=== PATIENT | female | born 1945 | race Caucasian/White ===

== ENCOUNTER → 2016-05-11 | Outpatient (CLI) | payer MEDICARE ==
--- NOTE | 2016-05-14 12:09 | MM ---
Reason for exam: screening (asymptomatic). Last mammogram was performed 1 year ago. History: Patient is postmenopausal. Family history of breast cancer in mother at age 72. Took estrogen for 13 years. Physical Findings: A clinical breast exam by your physician is recommended on an annual basis and results should be correlated with mammographic findings. MG 3D Screening Mammo W/Cad Bilateral CC and MLO view(s) were taken. Prior study comparison: May 11, 2015, bilateral MG screening mammo w CAD. April 27, 2014, bilateral MG screening mammo w CAD. There are scattered fibroglandular densities. No significant changes when compared with prior studies. ASSESSMENT: Negative, BI-RAD 1 RECOMMENDATION: Routine screening mammogram of both breasts in 1 year.
== END | disposition home or self-care (01) ==
LOC: RADMAMWWP 15:01
PROVIDERS: ATTEND Family Medicine
DX: Z12.31 Encounter for screening mammogram for malignant neoplasm of breast (principal)
CPT/HCPCS: 77063; G0202

== ENCOUNTER → 2016-12-07 | Outpatient (CLI) | payer MEDICARE ==
--- NOTE | 2016-12-07 14:37 | MR ---
EXAMINATION TYPE: MR lumbar spine wo con DATE OF EXAM: 12/07/2016 COMPARISON: NONE HISTORY: sciatica of lt side per order. Severe sciatica pain for 20 years with pain into left lower e xtremity per patient TECHNIQUE: Multiplanar, multisequence imaging of the lumbar spine is performed without IV contrast. FINDINGS: Sagittal images of the lumbar spine show vertebral body heights heights to appear satisfact ory. There is slight levoconvex scoliotic curvature centered at L2 level. There is multilevel spondyl olisthesis or grade 1 retrolisthesis of L1 on L2, L2 on L3, and L3 on L4. Multilevel disc desiccation is seen. There is moderate to advanced disc space narrowing L1-L2 and L2-L3 levels. Posterior disc h erniation is present at L2-L3 and L5-S1 levels on sagittal images. The conus medullaris is somewhat h igh in position at mid T12 level. No suspicious signal or clumping of lumbosacral nerve roots is seen . There is overall focal moderate to severe spurring with heterogeneous endplate changes in the upper to mid lumbar spine most prominent at L1-L2 level. There is susceptibility artifact posterior inferi or L2 level on sagittal image 7 of uncertain etiology. Axial images show the T12-L1 level to appear within normal limits. Axial images at L1-L2 level show mild to moderate broad-based posterior disc protrusion mildly effaci ng anterior thecal sac on axial image 23. Bilateral neural foramina are patent. Axial images at L2-L3 level show moderate broad disc bulge with right foraminal disc protrusion compo nent on axial image 18. There is mild effacement anterior thecal sac. Left-sided neural foramen is pa tent. Right-sided neural foramina shows moderate inferior neural foraminal narrowing. Mild facet arth ropathy bilaterally at this level is seen. Axial images at the L3-L4 level show mild to moderate facet arthropathy and ligamentum flavum hypertr ophy bilaterally mildly effacing posterior lateral thecal sac. There is spondylolisthesis and broad d isc bulge minimally effacing anterior thecal sac. Bilateral neural foramina are grossly patent. Axial images at L4-L5 level show moderate to advanced facet degenerative changes and ligament flavum hypertrophy. There is effacement of the posterior lateral thecal sac bilaterally. There is broad disc bulge minimally effacing anterior thecal sac. There is mild bilateral neural foraminal narrowing at this level identified. Axial images at L5-S1 level show mild/moderate facet degenerative changes bilaterally. There is broad disc bulge with focal central disc protrusion seen. Left-sided neural foramina are significantly cuco rowed with loss of surrounding epidural fat seen best on sagittal image 2. Suspect foraminal disc pro trusion accounting for this appearance if there has been no history of prior surgery. There is modera te right-sided neural foraminal narrowing at this level identified. Paraspinal muscles show mild generalized atrophy bilaterally. IMPRESSION: Scoliotic curvature with multilevel spondylolisthesis and degenerative changes as detaile d above. Attention to lumbosacral junction where foraminal disc herniation is felt to be causing adva nced left-sided neural foraminal narrowing and likely effacement of left L5 nerve.
== END | disposition home or self-care (01) ==
LOC: RADMRIMAIN 13:35
PROVIDERS: ATTEND Family Medicine
DX: M99.73 Connective tissue and disc stenosis of intervertebral foramina of lumbar region (principal); M46.06 Spinal enthesopathy, lumbar region; M47.26 Other spondylosis with radiculopathy, lumbar region
CPT/HCPCS: 72148

== ENCOUNTER → 2017-08-23 | Outpatient (CLI) | payer MEDICARE ==
--- NOTE | 2017-08-27 08:02 | MM ---
Reason for exam: screening (asymptomatic). Last mammogram was performed 1 year and 3 months ago. History: Patient is postmenopausal. Family history of breast cancer in mother at age 72. Took estrogen for 13 years. Physical Findings: A clinical breast exam by your physician is recommended on an annual basis and results should be correlated with mammographic findings. MG 3D Screening Mammo W/Cad Bilateral CC and MLO view(s) were taken. Prior study comparison: May 11, 2016, bilateral MG 3d screening mammo w/cad. May 11, 2015, bilateral MG screening mammo w CAD. There are scattered fibroglandular densities. Asymmetric density lateral left breast middle depth is new from 2016 and more defined from 2017. Partially disperses on 3D images. ASSESSMENT: Incomplete: need additional imaging evaluation, BI-RAD 0 RECOMMENDATION: Special view mammogram of the left breast. If lesion persists on supplemental views, image directed ultrasound is recommended. [facility] will attempt to contact patient to return for supplemental views and ultrasound if indicated.
== END | disposition home or self-care (01) ==
LOC: RADMAMWWP 12:27
PROVIDERS: ATTEND Family Medicine
DX: Z12.31 Encounter for screening mammogram for malignant neoplasm of breast (principal)
CPT/HCPCS: 77063; 77067

== ENCOUNTER → 2017-09-10 | Outpatient (CLI) | payer MEDICARE ==
--- NOTE | 2017-09-10 14:39 | MM ---
Reason for exam: additional evaluation requested from abnormal screening. Last mammogram was performed 1 month ago. History: Patient is postmenopausal. Family history of breast cancer in sister at age 72 and breast cancer in mother at age 72. Took estrogen for 13 years. Physical Findings: Nurse did not find any significant physical abnormalities on exam. MG 3D Work Up W/Cad LT Spot compression CC, spot compression MLO, and ML view(s) were taken of the left breast. Prior study comparison: August 23, 2017, bilateral MG 3d screening mammo w/cad. May 11, 2016, bilateral MG 3d screening mammo w/cad. The breast tissue is heterogeneously dense. This may lower the sensitivity of mammography. No distinct lesion persists on additional views left upper outer quadrant. These results were verbally communicated with the patient and result sheet given to the patient on 09/10/17. ASSESSMENT: Benign, BI-RAD 2 RECOMMENDATION: Return to routine screening mammogram schedule for both breasts.
== END | disposition home or self-care (01) ==
LOC: RADMAMWWP 13:26
PROVIDERS: ATTEND Family Medicine
DX: R92.8 Other abnormal and inconclusive findings on diagnostic imaging of breast (principal)
CPT/HCPCS: 77065; G0279; 77061

== ENCOUNTER → 2018-09-10 | Outpatient (CLI) | payer MEDICARE ==
--- NOTE | 2018-09-12 13:41 | MM ---
Reason for exam: screening (asymptomatic). Last mammogram was performed 1 year ago. History: Patient is postmenopausal. Family history of breast cancer in sister at age 72 and breast cancer in mother at age 72. Took estrogen for 13 years. Physical Findings: A clinical breast exam by your physician is recommended on an annual basis and results should be correlated with mammographic findings. MG 3D Screening Mammo W/Cad Bilateral CC and MLO view(s) were taken. Prior study comparison: September 10, 2017, left breast MG 3d work up w/cad LT. August 23, 2017, bilateral MG 3d screening mammo w/cad. No significant changes when compared with prior studies. ASSESSMENT: Benign, BI-RAD 2 RECOMMENDATION: Routine screening mammogram of both breasts in 1 year.
== END | disposition home or self-care (01) ==
LOC: RADMAMWWP 13:22
PROVIDERS: ATTEND Family Medicine
DX: Z12.31 Encounter for screening mammogram for malignant neoplasm of breast (principal)
CPT/HCPCS: 77063; 77067

== ENCOUNTER → 2020-01-12 | Outpatient (CLI) | payer MEDICARE ==
[2020-01-12 15:21] LABS: HCT 39.3 % (34.0-46.0); HGB 12.9 gm/dL (11.4-16.0); MCH 30.9 pg (25.0-35.0); MCHC 32.9 g/dL (31.0-37.0); MCV 93.7 fL (80.0-100.0); Mean Platelet Volume 7.2; Platelet Count 234 k/uL (150-450); RBC 4.19 m/uL (3.80-5.40); RDW 12.6 % (11.5-15.5); WBC 7.5 k/uL (3.8-10.6)
[2020-01-12 15:32] LABS: Albumin 3.8 g/dL (3.5-5.0); Calcium 9.5 mg/dL (8.4-10.2); Potassium 4.6 mmol/L (3.5-5.1); Total Bilirubin 0.4 mg/dL (0.2-1.3); Total Protein 6.3 g/dL (6.3-8.2)
[2020-01-12 15:41] LABS: Appearance,Urine Clear (Clear); Bacteria,Urine Moderate /hpf; Bilirubin,Urine 3+ (Negative); Blood,Urine Negative (Negative); Color,Urine Yellow; Glucose,Urine (UA) Negative (Negative); Hyaline Casts,Urine 1 /lpf (0-2); Ketones,Urine Negative (Negative); Leukocyte Esterase,Urine Trace (Negative); Mucus,Urine Rare /hpf; Nitrite,Urine Positive (Negative); PH, Urine 7.5 (5.0-8.0); Protein,Urine Negative (Negative); RBC,Urine <1 /hpf (0-5); Specific Gravity,Urine 1.018 (1.001-1.035); Squamous Epithelial Cell,Urine <1 /hpf (0-4); Urobilinogen,Urine <2.0 mg/dL (<2.0); WBC,Urine 1 /hpf (0-5)
[2020-01-12 15:42] LABS: INR 0.9 (<1.2); Partial Thromboplastin Time 22.9 sec (22.0-30.0); Prothrombin Time 9.8 sec (9.0-12.0)
== END | disposition home or self-care (01) ==
LOC: LABPAT 14:04
PROVIDERS: ATTEND Orthopaedic Surgery
DX: Z01.818 Encounter for other preprocedural examination (principal); M19.011 Primary osteoarthritis, right shoulder; Z01.812 Encounter for preprocedural laboratory examination
CPT/HCPCS: 80053; 81001; 85027; 85610; 85730; 87070

== ENCOUNTER 2020-01-22 10:10 | Inpatient (IN) | payer MEDICARE ==
[2020-01-13 10:12] VITALS: BMI 29.4
[~2020-01-22 10:10] MED LIST: DEXAMETHASONE SOD PHOSPHATE 4 MG/ML 1 ML VIAL IV ONE; HYDROmorphone 0.5 MG/0.5 ML SYRINGE IVP PRN; MIDAZOLAM 2 MG/2 ML VIAL IV PRN; ONDANSETRON 4 MG/2 ML VIAL IVP ONE; VANCOMYCIN 1,250 MG in SODIUM CHLORIDE 0.9% 250 ML IVPB ONE
[2020-01-22] MEDS: LACTATED RINGERS 1,000 ML IV SCH (11:00)
[2020-01-22] MEDS ORDERED: fentaNYL (PF) 50 MCG/ML 2 ML AMP IV ONE ×2 (12:07→12:09)
[2020-01-22] MEDS ORDERED: THROMBIN (BOVINE) 5,000 UNIT VIAL TOPICAL ONE (12:26)
--- NOTE | 2020-01-22 12:41 | P.ANPRN ---
Procedure Note - Anesthesia - Nerve Block Performed Right Interscalene Time Out Performed: Yes (12:06) Date of Procedure: 01/22/20 Procedure Start Time: Procedure Stop Time: Location of Patient: PreOp Indication: Acute Post-Operative Pain, Requested by Surgeon (Dr Smith) Sedation Type: Sedate with meaningful contact maintained Preparation: Sterile Prep Position: Supine Catheter: None Needle Types: Pajunk (22g) Ultrasound used to visualize needle placement: Yes Ultrasound used to observe medication spread: Yes Injectate: 0.5% Ropivacaine (see comment for volume) (20cc + Decadron 4mg) Pain Paresthesia on Injection Noted: No Resistance on Injection: Normal Image Stored and Saved: Yes Events: Uneventful and Well Tolerated
[2020-01-22] MEDS ORDERED: CLINDAMYCIN 1,800 MG in SODIUM CHLORIDE 0.9% IRRIGATIO 3,000 ML IRRIGATION ONE (13:05)
[2020-01-22] MEDS ORDERED: LACTATED RINGERS 1,000 ML IV ONE (14:00)
[2020-01-22] MEDS ORDERED: diphenhydrAMINE 25 MG CAP PO PRN (15:04)
[2020-01-22] MEDS ORDERED: TEMAZEPAM 15 MG CAP PO PRN (15:04)
[2020-01-22] MEDS ORDERED: ONDANSETRON 4 MG/2 ML VIAL IVP PRN (15:04)
[2020-01-22] MEDS ORDERED: HYDROmorphone 0.2 MG/1 ML SYRINGE IVP PRN (15:04)
[2020-01-22] MEDS ORDERED: HYDROmorphone 0.5 MG/0.5 ML SYRINGE IVP PRN ×2 (15:04)
[2020-01-22] MEDS ORDERED: SENNOSIDES-DOCUSATE SODIUM 1 EACH TAB PO PRN (15:04)
[2020-01-22] MEDS ORDERED: HYDROcodone/APAP 5-325MG 1 EACH TAB PO PRN (15:04)
--- NOTE | 2020-01-22 15:41 | XR ---
EXAMINATION TYPE: XR shoulder limited RT DATE OF EXAM: 01/22/2020 CLINICAL HISTORY: pain TECHNIQUE: Postop right shoulder COMPARISON: None FINDINGS: Single view of the right shoulder was performed demonstrating proximal humeral prosthesis. Alignment is anatomic. IMPRESSION: Appropriate postoperative alignment.
[2020-01-22] MEDS: ETODOLAC 400 MG TAB PO SCH (21:16)
[2020-01-22] MEDS: HYDROcodone/APAP 5-325MG 1 EACH TAB PO PRN (21:16)
[2020-01-23] MEDS ORDERED: VANCOMYCIN 1,250 MG in SODIUM CHLORIDE 0.9% 250 ML IVPB ONE (08:00)
[2020-01-23] MEDS: HYDROcodone/APAP 5-325MG 1 EACH TAB PO PRN ×2 (08:37→13:59)
[2020-01-23 08:39] VITALS: BP 102/65; PULSE 78; RESP 20; TEMP 98.6
[2020-01-23] MEDS: ETODOLAC 400 MG TAB PO SCH (08:40)
--- NOTE | 2020-01-23 08:59 | P.DS ---
Providers Date of admission: 01/22/20 14:59 Expected date of discharge: 01/23/20 Attending physician: Gibran Smith Consults: 01/22/20 15:04 Consult Physician Routine Consulting Provider: Juan Walsh Consult Reason/Comments: Medical management Do you want consulting provider notified?: Yes Primary care physician: Juan Walsh - Discharge Diagnosis(es) (1) Primary osteoarthritis, right shoulder Current Visit: Yes Status: Acute (2) Status post replacement of right shoulder joint Current Visit: Yes Status: Acute Hospital Course: This is a 74-year-old female who has history of severe degenerative arthritis of the right shoulder and presented to discuss surgical options. After discussion and consideration the patient elects to proceed with total shoulder arthroplasty. The pt is seen preoperatively by their family physician and cleared for surgery. The patient is admitted to [facility] on 01/22/2020 for total right shoulder arthroplasty with Dr. Smith. She is doing well postoperatively. Vital signs and hemoglobin are stable. The patient is able to get up out of bed independently and is ambulating without assistance. Pain is well controlled. Patient is discharged to home on postoperative day #1 in good condition. Please see med rec for accurate list of home medications. Patient Condition at Discharge: Stable Plan - Discharge Summary Discharge Rx Participant: No New Discharge Prescriptions: New Aspirin [Adult Low Dose Aspirin EC] 81 mg PO BID #60 tablet. HYDROcodone/APAP 5-325MG [[place] 5-325] 1 - 2 tab PO Q6HR PRN #42 tab PRN Reason: Pain Sennosides-Docusate Sodium [Senokot-S] 1 tab PO BID #60 tablet No Action Simvastatin [Zocor] 10 mg PO W/SUPPER Oxybutynin ER [Ditropan Xl] 10 mg PO QAM Fexofenadine HCl [Reyna Allergy] 180 mg PO DAILY traMADol HCL [Ultram] 50 mg PO TID hydroCHLOROthiazide [Hydrodiuril] 25 mg PO DAILY Sertraline [Zoloft] 100 mg PO DAILY Atenolol [Tenormin] 50 mg PO DAILY Etodolac Tab 400 mg PO BID-W/MEALS Discharge Medication List Atenolol [Tenormin] 50 mg PO DAILY 01/13/20 [History] Etodolac Tab 400 mg PO BID-W/MEALS 01/13/20 [History] Fexofenadine HCl [Reyna Allergy] 180 mg PO DAILY 01/13/20 [History] Oxybutynin ER [Ditropan Xl] 10 mg PO QAM 01/13/20 [History] Sertraline [Zoloft] 100 mg PO DAILY 01/13/20 [History] Simvastatin [Zocor] 10 mg PO W/SUPPER 01/13/20 [History] hydroCHLOROthiazide [Hydrodiuril] 25 mg PO DAILY 01/13/20 [History] traMADol HCL [Ultram] 50 mg PO TID 01/13/20 [History] Aspirin [Adult Low Dose Aspirin EC] 81 mg PO BID #60 tablet. 01/22/20 [Rx] HYDROcodone/APAP 5-325MG [[place] 5-325] 1 - 2 tab PO Q6HR PRN #42 tab 01/22/20 [Rx] Sennosides-Docusate Sodium [Senokot-S] 1 tab PO BID #60 tablet 01/22/20 [Rx] Follow up Appointment(s)/Referral(s): Fely Martinez, PAC [PHYSICIAN MOLECULAR BIOLOGY PROFESSOR] - 2 Weeks Activity/Diet/Wound Care/Special Instructions: Keep sling in place, may remove for pendulum exercises and table slides (passive motion). Keep Optifoam dressing intact 7-10 days. Discharge Disposition: HOME SELF-CARE
[2020-01-23] MEDS ORDERED: atenoloL 50 MG TAB PO SCH (09:00)
[2020-01-23] MEDS ORDERED: hydroCHLOROthiazide 25 MG TAB PO SCH (09:00)
[2020-01-23] MEDS ORDERED: LORATADINE 10 MG TAB PO SCH (09:00)
[2020-01-23] MEDS ORDERED: SERTRALINE 100 MG TAB PO SCH (09:00)
[2020-01-23] MEDS ORDERED: OXYBUTYNIN 10 MG TAB.ER.24 PO SCH (09:00)
[2020-01-23] MEDS: LACTATED RINGERS 1,000 ML IV SCH (10:25)
--- NOTE | 2020-01-23 16:15 | P.CONS ---
History of Present Illness - Reason for Consult Hypertension - History of Present Illness Is a pleasant 74-year-old female was admitted for right shoulder arthroplasty. Patient is hypotensive postoperatively which is expected patient is on hydrochlorothiazide and a beta greta at home. Review of Systems REVIEW OF SYSTEMS: CONSTITUTIONAL: No fever, no malaise, no fatigue. HEENT: No recent visual problems or hearing problems. Denied any sore throat. CARDIOVASCULAR: No chest pain, orthopnea, PND, no palpitations, no syncope. PULMONARY: No shortness of breath, no cough, no hemoptysis. GASTROINTESTINAL: No diarrhea, no nausea, no vomiting, no abdominal pain. NEUROLOGICAL: No headaches, no weakness, no numbness. HEMATOLOGICAL: Denies any bleeding or petechiae. GENITOURINARY: Denies any burning micturition, frequency, or urgency. MUSCULOSKELETAL/RHEUMATOLOGICAL: Denies any joint pain, swelling, or any muscle pain. ENDOCRINE: Denies any polyuria or polydipsia. The rest of the 14-point review of systems is negative. Past Medical History Past Medical History: Hyperlipidemia, Hypertension, Osteoarthritis (OA), Skin Disorder, Sleep Apnea/CPAP/BIPAP Additional Past Medical History / Comment(s): hx eczema, seasonal and environmental allergies, "leaky bladder", balance problem due to left ear problem History of Any Multi-Drug Resistant Organisms: None Reported Past Surgical History: Adenoidectomy, Appendectomy, Hysterectomy, Tonsillectomy Additional Past Surgical History / Comment(s): oral surgery, carpal tunnel cleve, mult steroid injections, cleve cataracts Past Anesthesia/Blood Transfusion Reactions: No Reported Reaction Additional Psychological History / Comment(s): OCD Smoking Status: Former smoker Past Alcohol Use History: Daily Additional Past Alcohol Use History / Comment(s): quit smoking 5 yrs ago, started smoking age 20, 1 alcoholic drink daily Past Drug Use History: Marijuana Additional Drug Use History / Comment(s): daily - Past Family History Mother Family Medical History: Cancer Additional Family Medical History / Comment(s): breast Sister(s) Family Medical History: Cancer Additional Family Medical History / Comment(s): mult myeloma Medications and Allergies Home Medications Medication Instructions Recorded Confirmed Type Atenolol [Tenormin] 50 mg PO DAILY 01/13/20 01/13/20 History Etodolac Tab 400 mg PO BID-W/MEALS 01/13/20 01/22/20 History Fexofenadine HCl [Reyna Allergy] 180 mg PO DAILY 01/13/20 01/13/20 History Oxybutynin ER [Ditropan Xl] 10 mg PO QAM 01/13/20 01/13/20 History Sertraline [Zoloft] 100 mg PO DAILY 01/13/20 01/13/20 History Simvastatin [Zocor] 10 mg PO W/SUPPER 01/13/20 01/13/20 History traMADol HCL [Ultram] 50 mg PO TID 01/13/20 01/13/20 History Aspirin [Adult Low Dose Aspirin EC] 81 mg PO BID #60 tablet. 01/22/20 Rx HYDROcodone/APAP 5-325MG [[place] 1 - 2 tab PO Q6HR PRN #42 tab 01/22/20 Rx 5-325] Sennosides-Docusate Sodium 1 tab PO BID #60 tablet 01/22/20 Rx [Senokot-S] Allergies Allergy/AdvReac Type Severity Reaction Status Date / Time cephalexin Allergy Rash/Hives Verified 01/22/20 10:56 ofloxacin [From Floxin] Allergy Rash/Hives Verified 01/22/20 10:56 Physical Exam Vitals: Vital Signs Temp Pulse Resp BP Pulse Ox 01/23/20 07:00 98.6 F 78 20 102/65 93 L 01/23/20 02:40 98.3 F 58 L 16 116/70 95 01/22/20 19:20 20 01/22/20 19:15 97.3 F L 82 20 112/67 96 01/22/20 18:00 76 115/75 96 01/22/20 17:45 84 122/70 95 01/22/20 17:30 76 127/65 95 01/22/20 17:15 68 118/78 95 01/22/20 17:00 69 111/76 92 L 01/22/20 16:45 65 121/76 95 01/22/20 16:30 71 130/83 94 L 01/22/20 16:15 67 117/75 95 Intake and Output 01/23/20 01/23/20 01/23/20 06:59 14:59 22:59 Intake Total 160 Balance 160 Intake: IV 160 Lactated Ringers 1,000 ml 160 @ 20 mls/hr IV .Q24H [facility] Rx#:[id number] Other: Voiding Method Toilet # Voids 1 PHYSICAL EXAMINATION: GENERAL: The patient is alert and oriented x3, not in any acute distress. Well developed, well nourished. HEENT: Pupils are round and equally reacting to light. EOMI. No scleral icterus. No conjunctival pallor. Normocephalic, atraumatic. No pharyngeal erythema. No thyromegaly. CARDIOVASCULAR: S1 and S2 present. No murmurs, rubs, or gallops. PULMONARY: Chest is clear to auscultation, no wheezing or crackles. ABDOMEN: Soft, nontender, nondistended, normoactive bowel sounds. No palpable organomegaly. MUSCULOSKELETAL: No joint swelling or deformity. She has a sling to the right arm EXTREMITIES: No cyanosis, clubbing, or pedal edema. NEUROLOGICAL: Gross neurological examination did not reveal any focal deficits. SKIN: No rashes. Assessment and Plan Plan: -Hypertension: Patient blood pressure is is 10 2 / 65 today hold off on hydrochlorothiazide his atenolol can be resumed -Hyperlipidemia -Sleep apnea continue with CPAP machine -Right shoulder arthroplasty postoperative management as per primary service Patient can be discharged from medical perspective
[2020-01-23] MEDS ORDERED: ATORVASTATIN 10 MG TAB PO SCH (17:30)
--- NOTE | 2020-02-08 14:58 | P.OP ---
Date of Procedure: 01/22/20 Procedure(s) Performed: right shoulder TSA Eclipse system from [employer] Glenoid Vault-Lock component with grafting from humeral head resected segment 200 chon Martinez small size of glenoid and humeral head Medium mulch screw Good bone metaphysis humeral head PREOPERATIVE DIAGNOSES: 1. 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 Right shoulder severe osteoarthritis of the glenohumeral joint PROCEDURES PERFORMED: 1. Right shoulder total replacement arthroplasty (metal on polyethylene articulation) 2. Long head biceps tenotomy with tenodesis ANESTHESIA: Gen. SANIPRACTIC PHYSICIAN: Fely Martinez PA-C (assistance with exposure, hemostasis, retraction, fixation, closure, dressing, splint) COMPLICATIONS: None ESTIMATED BLOOD LOSS: 200 mL. DISPOSITION: To post-anesthesia care unit INDICATIONS: Mrs. Metz is a 74 year old female with a history of severe shoulder glenohumeral osteoarthritis. The plan today is total replacement arthroplasty. I discussed risks and potential complications as being inclusive of, but not limited to: Bleeding, infection, scarring, discomfort, blood vessel and/or nerve damage, fracture, stiffness, loosening, dislocation, wear, osteolysis, weakness, and need for revision, and other risks. Appropriate consent has been obtained and the form has been signed. PROCEDURE: After appropriate consent was obtained, the patient was taken to the operating room placed in the supine position. Anesthesia was initiated, and after confirmation of adequate anesthesia, the patient was carefully positioned in the modified beachchair position with approximately 30 elevation of the back rest. Care was taken to make sure that all pressure points were adequately padded. and head was secured with Coban wrap. Prepping and draping were completed in the usual aseptic fashion using ChloraPrep. Ioban drape was used for the case. Timeout was called, confirming patient identity, side, procedure, and administration of antibiotics. Incision was created from just superior and medial to the coracoid process at the inferior margin of the clavicle obliquely across the front of the shoulder down to just lateral to the axillary fold. Incision was deepened carefully through skin and into subcutaneous tissues and down to muscle. Skin flaps were undermined to improve exposure. The cephalic vein was encountered and protected. Dissection along the medial side of the cephalic vein was accomplished and the vein was retracted along with the deltoid. The deltopectoral interval was incised and the clavipectoral fascia came into view. Self-retaining retractor was applied with care not to damage the cephalic vein. The strap muscles were noted, and dissection proceeded lateral to the red stripe and a self-retaining retractor consisting of a [place] self-retaining retractor with appropriate sized blades was used under the strap muscles and under the deltoid. Should be noted that the deltoid was carefully mobilized from the humerus with a Aleman elevator. Excellent exposure was accomplished. Sub scapularis tendon was noted and a small opening was created at the rotator interval superiorly. A Hohmann retractor was placed in this region for superior retraction. Dissection proceeded along the superior margin of the subscapularis tendon to the coracoid. The inferior aspect of the subscapularis tendon was noted and the anterior circumflex circumflex vessels were dissected out, and ligated with 0 Vicryl suture. Subscapularis tenotomy was then performed leaving approximately 5 mm of residual subscapularis stump left attached laterally to the lesser tuberosity. Tag stitches were placed in the subscapularis tendon superiorly and inferiorly. Incision was performed using electrocautery down to the anterior circumflex humeral vessels and along the inferior humeral neck. Progressive external rotation of the shoulder assisted in releasing necessary soft tissue down to approximately the 6 o'clock position on the humerus. Inferior capsule below the inferior margin of the subscapularis tendon was resected sharply using cautery and dissecting scissors. The axillary nerve was then palpated and identified and protected with a sharp Hohmann retractor placed just anterior to the nerve at the level of the inferior glenoid. Further capsular resection was then performed using cautery, staying anterior to the retractor. Further release of the subscapularis was performed on its deep surface, releasing the anterior capsule from its attachment to the subscapularis. This completed the 360 release of the subscapularis. The tendon mobility was tested by gently pulling on the tag sutures . The subscapularis tendon was then tucked medially beneath the strap muscles. Next, the humeral head was gently dislocated from the joint with progressive external rotation, adduction, and extension. Metal fingers were placed around the inferior aspect of the humeral head and superiorly. Excellent exposure was accomplished. Spurs were removed from the periphery of the humeral head and inferior humeral neck. Biceps tenotomy was then performed at this point, so that the biceps sheath entrance could be clearly visualized. Once protection of the rotator cuff peripherally had been confirmed, the humeral head cut was made freehand technique matching the patient's naknek retroversion. The cut surface of the humeral head was then tested for integrity of the bone which was found to be adequate for performance of the Eclipse humeral head reconstruction. The cut humeral head was then measured and sized. The small humeral head was planned for. The template was pinned into place and the center drill was used to assess the depth of the mulch screw necessary. The reamer was then placed over the guide and advanced to the depth stop. The humeral head protector was then left in position during the glenoid reconstruction. Leaving the humeral protector in place, a ring retractor was applied into the joint to retract the proximal humerus posteriorly. Excellent exposure of the glenoid was accomplished. Removal of capsule labral tissue around the periphery of the glenoid was performed sharply and with cautery. There was really no significant remaining cartilage on the patient's glenoid. The center point was then marked with cautery and glenoid sizing was performed. The center hole of the glenoid sizer was then positioned over the marked centerpoint and drilled with a guide pin to bicortical purchase. Care was taken when placing this pin to align the handle of the guide with the anterior glenoid neck. Reaming was then performed over the guidepin, removing little bone but making sure that the glenoid surface matched that of the glenoid component. Reaming was performed also to normalize the angle of the glenoid vault, taking into consideration the noted mild posterior glenoid erosion on preoperative x-rays. The peg hole guide was then applied to the center hole, and the superior and inferior peg holes were created. The inferior peg holes were then connected with the inferior keel impactor. Vault lock glenoid component of the planned size was then called for and the center peg hole was prepared for bone graft using the reamed remnants of the humeral head. The glenoid preparation was then completed using pulse lavage and epinephrine-soaked sponges to ensure a dry area for cement. Cement was next on the back table and applied to the superior hole and the inferior keel hole and impacted 3 separate times, applying further cement each time. The vault lock glenoid component from [employer] was then preloaded with cement in the keel hole and around the superior peg. It was then appropriately positioned over the holes and impacted fully using firm mallet taps with confirmation that all peg holes and the keel were directly in line with each other. Cement was allowed to harden after removal of the extruded cement. Trial component from the glenoid was then removed and retractors were reapplied. The glenoid component was called for and the glenoid vault was prepared with epinephrine-soaked sponges and irrigation. The inside of the keel was undermined with a curette and the debris removed in order to enhance cement fixation. After thorough lavage and drying of the glenoid vault, cement was mixed on the back table and allowed to reach a slightly doughy consistency. The cement was then inserted into the prepared glenoid vault and pressurization was done several times with the keel impactor and keel sponge. Final cementing was then applied and the glenoid surface was free of cement. Cement was also applied to the hole in the keel of the component. The component was then inserted and impacted into position. Constant pressure was held on the component until the cement had fully hardened. Excess cement was removed. The periphery of the component was checked and the component was completely flush against the glenoid. The surface protector from the humerus was then removed and the humeral surface was lavaged with saline. Final component was called for and implanted with firm mallet taps until it was fully deployed. Medium bone mulch screw was then applied and it bottomed out nicely with excellent purchase. Trial humeral heads were then utilized to make sure that the joint was not overstuffed and that the components matched up well. Patient had a satisfactory 40-50-60 test with the planned for humeral head size. Excellent stability was noted of all components. The shoulder had 50% translation with posteriorly directed force and reduced spontaneously when the force was removed. In abduction, patient had at least 65 of internal rotation and with the humerus at the patient's side, external rotation was 60 plus. Subsequently, the final humeral head implant was called for and impacted onto the [place] taper of the short humeral stem. Thorough lavage was performed and final range of motion and stability testing was satisfactory. The subscapularis tendon was then repaired as follows. 4 #2 FiberWire sutures had been applied through the bone of the lesser tuberosity prior to implanting the humeral component. These sutures were used in modified Bernardino-Heath configuration to the edge of the subscapularis tendon. The tendon was repaired superiorly first and the long head of the biceps tendon was tenodesed during this repair into the groove. 6 #2 FiberWire sutures were used to secure the subscapularis tendon, plus an additional 4 sutures of 0 Vicryl suture as and over stitch. Once this was performed external rotation was rechecked and found to be 60. Careful deltopectoral interval closure was performed with care to to avoid the cephalic vein. Final subcutaneous closure was performed using 2-0 Vicryl suture followed by Quill subcuticular stitch and Dermabond. Sterile dressing was then applied and sling was applied. Patient tolerated the procedure well and taken to recovery room in stable condition. Sponge and needle counts were correct.
== END 2020-01-23 14:26 | disposition home or self-care (01) | DRG 483 ==
LOC: OR 10:10 → 4SSUR 14:59
PROVIDERS: ADMIT Orthopaedic Surgery; ATTEND Orthopaedic Surgery
DX: M19.011 Primary osteoarthritis, right shoulder (principal); E78.5 Hyperlipidemia, unspecified; F42.9 Obsessive-compulsive disorder, unspecified; I10 Essential (primary) hypertension; I95.89 Other hypotension; Z96.611 Presence of right artificial shoulder joint; G47.30 Sleep apnea, unspecified; Z79.82 Long term (current) use of aspirin; Z79.899 Other long term (current) drug therapy; Z90.710 Acquired absence of both cervix and uterus; Z87.891 Personal history of nicotine dependence; Z80.7 Family history of other malignant neoplasms of lymphoid, hematopoietic and related tissues; Z90.49 Acquired absence of other specified parts of digestive tract; Z90.89 Acquired absence of other organs; Z98.42 Cataract extraction status, left eye; Z98.41 Cataract extraction status, right eye; Z80.3 Family history of malignant neoplasm of breast; Z88.1 Allergy status to other antibiotic agents
CPT/HCPCS: 64415; 76942; 88300

== ENCOUNTER → 2020-02-03 | Outpatient (CLI) | payer MEDICARE ==
--- NOTE | 2020-02-03 11:43 | CONS ---
CONSULTATION DATE OF SERVICE: 02/03/2020 A 74-year-old lady who has been evaluated in the [facility] for obstructive sleep apnea-hypopnea syndrome. HISTORY OF PRESENT ILLNESS/SLEEP-WAKE EVALUATION: Patient has history of obstructive sleep apnea for about 20 years. At that time, she is on treatment with CPAP. Recently after she lost about 50 pounds of weight, she developed problems with CPAP, has difficulties to tolerate pressure. She wakes up from sleep about 3 times with nocturia. She told that she still has episodes of snoring and her snoring keeps her awake according to the patient. Usually no problems with falling asleep. No TV in bedroom. She does not take any naps. Echo Sleepiness Scale is 4, which is normal. PAST MEDICAL HISTORY: Positive for hypertension, hyperlipidemia, episodes of headaches, chronic sinusitis, chronic bronchitis, chronic sciatic nerve problems, bilateral, OCD. PAST SURGICAL HISTORY: Tonsillectomy, total hysterectomy, bilateral surgery for carpal tunnel syndrome, right shoulder replaced 10 days ago. MEDICATIONS: Atenolol 50 mg once a day, hydrochlorothiazide 25 mg once a day, Sertraline 100 mg once a day, Tramadol 50 mg 3 times a day, Etodolac 50 mg 2 times a day, Oxybutynin 10 mg once a day, Simvastatin 10 mg once a day, Reyna D 180 mg once a day, aspirin 81 mg twice a day. ALLERGY: CEPHALEXIN, FLOXIN. SOCIAL HISTORY: Positive for many years of smoking, quit about 5 years ago. REVIEW OF SYSTEMS: Awakenings from sleep, difficulties to tolerate CPAP pressure. PHYSICAL EXAM: lady without distress, BP 100/71, HR 68, RR 15, height 5, 1-1/2 inches. Weight 165, BMI 30.6, temperature 97.2, oxygen saturation at room air 98%. NECK: 13.5 inches in circumference. OROPHARYNX: Extremely low position of soft palate. Mallampati 4. ABDOMEN: Slightly obese. LUNGS: Clear to percussion and to auscultation. Good air exchange. No wheezing or rhonchi. HEART: S1, S2 regular. No murmurs, gallops, or rubs. EXTREMITIES: No clubbing or cyanosis. FINANCIAL SERVICES EDUCATION CONSULTANT: Awake, alert, and oriented X3. Cranial nerves 2 to 7 intact. There is no fasciculation or atrophy. noted. No focal deficits observed. HEART: My template. IMPRESSION: 1. Obstructive sleep apnea-hypopnea syndrome for 20 years. Patient continued to use her CPAP equipment every night, but has difficulties with the machine after she lost 50 pounds of weight, extremely low position of soft palate, Mallampati 4. 2. Mild obesity, BMI 30.6. 3. Hypertension. 4. Hyperlipidemia. 5. Headaches. 6. History of chronic sinusitis. 7. History of chronic bronchitis. 8. History of balance problems. 9. History of chronic sciatic nerve problems, bilateral. 10.Status post right shoulder replacement 10 days ago. 11.Status post total hysterectomy for endometriosis. 12.Status post bilateral surgery for carpal tunnel syndrome. I checked the patient CPAP unit. Usage is 29/30 nights for more than 4 hours with average usage is 7 hours per night. CPAP pressure is 15 cm of water. Machine does not have information about apnea-hypopnea index. PLAN: 1. Repeat CPAP titration for re-evaluation of effective CPAP pressure at the present time after patient lost about 50 pounds of weight. 2. I changed CPAP pressure down to 10 cm of water. 3. Patient may need to get a new CPAP unit, present unit does not have information about apnea-hypopnea index. 4. Watching and losing weight. 5. Precautions related to driving. No driving if feeling sleepiness. 6. Patient will continue to use CPAP therapy every night for the whole night. Thank you very much for allowing me to participate in management of your patient. Sincerely, Samuel Mazariegos MD, PhD, FAASM Diplomat of [employer] [employer] Ground [employer] Technician [facility] [place] MMODL / IJN: [id number] /
== END | disposition home or self-care (01) ==
LOC: SLEEP 09:53
PROVIDERS: ATTEND Internal Medicine
DX: G47.33 Obstructive sleep apnea (adult) (pediatric) (principal); I10 Essential (primary) hypertension; E78.5 Hyperlipidemia, unspecified; R51.9 Headache, unspecified; J42 Unspecified chronic bronchitis; E66.9 Obesity, unspecified; Z87.898 Personal history of other specified conditions; Z87.09 Personal history of other diseases of the respiratory system; Z96.611 Presence of right artificial shoulder joint; Z90.710 Acquired absence of both cervix and uterus; Z86.69 Personal history of other diseases of the nervous system and sense organs; Z99.89 Dependence on other enabling machines and devices; Z68.30 Body mass index [BMI] 30.0-30.9, adult; Z79.82 Long term (current) use of aspirin; Z79.891 Long term (current) use of opiate analgesic; Z79.899 Other long term (current) drug therapy
CPT/HCPCS: 99211

== ENCOUNTER → 2020-06-23 | Outpatient (CLI) | payer MEDICARE ==
--- NOTE | 2020-06-23 19:51 | SFUN ---
SLEEP CENTER FOLLOW UP NOTE DATE OF SERVICE: 06/23/2020 This 74-year-old lady has been followed in Sleep Center for treatment of obstructive sleep apnea-hypopnea syndrome. Recently the patient had a repeat CPAP titration after she lost about 50 pounds of weight, and then she received a new CPAP unit. She likes her CPAP equipment and it works well. She sleeps well with the machine. [place] Sleepiness Scale today is 2. I checked her CPAP unit. Patient used it 27/28 nights for more than 4 hours, with average usage 6.3 hours per night. Pressure is in the range of 5 to 14, average pressure 12.6. Leak is 34 L/minute. Apnea-hypopnea index for the last night was 4.6, average for the last month 7.2 with amount of central events 2.6. MEDICATIONS: 1. Atenolol 50 mg once a day. 2. Hydrochlorothiazide 25 mg once a day. 3. Sertraline 100 mg once a day. 4. Tramadol 50 mg 3 times a day. 5. Etodolac . 6. Oxybutynin 10 mg once a day. 7. Simvastatin 10 mg once a day. 8. Reyna D 180 mg once a day. 9. Aspirin 81 mg once a day. PHYSICAL EXAMINATION: GENERAL: A pleasant patient in no distress. VITAL SIGNS: BP 131/72, HR 52, RR 18, weight 172.4, which is 7 pounds more than during previous visit, temperature 97.7, oxygen saturation at room air 97%. HEENT: PERRLA, EOMI. Evaluation of oropharynx showed tongue protrudes midline. Extremely low position of soft palate. Mallampati IV. NECK: Supple. No JVD. Thyroid is not palpable. LUNGS: Clear to percussion and to auscultation. Good air exchange. No wheezing or rhonchi. HEART: S1, S2 regular. No murmurs, gallops or rubs. ABDOMEN: Slightly obese. EXTREMITIES: No clubbing or cyanosis. SIGNAL FITTER: Awake, alert, and oriented X3. Cranial nerves 2 to 7 intact. There is no fasciculation or atrophy. noted. No focal deficits observed. IMPRESSION: 1. Obstructive sleep apnea-hypopnea syndrome. Patient demonstrated great compliance with treatment, benefitting from treatment. 2. Obesity. 3. Hypertension. 4. Hyperlipidemia. 5. Headaches. 6. History of chronic sinusitis. 7. History of chronic bronchitis. 8. History of balance problems. 9. History of chronic sciatic nerve problems bilaterally. 10.Status post right shoulder replacement. 11.Status post total hysterectomy for endometriosis. 12.Status post bilateral surgery for carpal tunnel syndrome. PLAN: 1. Patient will continue to use PAP equipment every night for the whole night. 2. Sleep hygiene with regular time in bed for at least 7-1/2 to 8 hours. 3. Precautions related to driving. No driving if feeling sleepiness. 4. I will maintain all necessary prescription for PAP supplies including mask, tube, filters. 5. Watching weight. 6. Follow-up visit in 6 months or earlier if patient has any problems. Thank you very much for allowing me to participate in the management of your patient. Sincerely, Samuel Mazariegos MD, PhD, FAASM Diplomat of [place] [employer] [place] [employer] [facility] [place] MMODL / ELKEN: [id number] /
== END | disposition home or self-care (01) ==

== ENCOUNTER → 2020-08-26 | Outpatient (CLI) | payer MEDICARE ==
--- NOTE | 2020-08-31 11:25 | MM ---
Reason for exam: screening (asymptomatic). Last mammogram was performed 1 year and 11 months ago. History: Patient is postmenopausal. Family history of breast cancer in sister at age 72 and breast cancer in mother at age 72. Took hormonal contraceptives for 10 years. Took estrogen for 13 years. Physical Findings: A clinical breast exam by your physician is recommended on an annual basis and results should be correlated with mammographic findings. MG 3D Screening Mammo W/Cad Bilateral CC and MLO view(s) were taken. Prior study comparison: September 10, 2018, bilateral MG 3d screening mammo w/cad. September 10, 2017, left breast MG 3d work up w/cad LT. The breast tissue is heterogeneously dense. This may lower the sensitivity of mammography. ASSESSMENT: Benign, BI-RAD 2 RECOMMENDATION: Routine screening mammogram of both breasts in 1 year.
== END | disposition home or self-care (01) ==
LOC: RADMAMWWP 14:24
PROVIDERS: ATTEND Family Medicine
DX: Z12.31 Encounter for screening mammogram for malignant neoplasm of breast (principal); Z78.0 Asymptomatic menopausal state; Z80.3 Family history of malignant neoplasm of breast
CPT/HCPCS: 77063; 77067

== ENCOUNTER → 2021-02-23 | Outpatient (CLI) | payer MEDICARE ==
--- NOTE | 2021-02-23 20:43 | SFUN ---
SLEEP CENTER FOLLOW UP NOTE DATE OF SERVICE: 02/23/2021 75-year-old lady has been followed in Sleep Center for treatment of obstructive sleep apnea-hypopnea syndrome. Patient continued to use her CPAP equipment every night. Sleeps well. Getting her supplies in time. [place] Sleepiness Scale today is only 1, which is perfect. I checked her CPAP unit. Range of the pressure 5-14, average 12.8. Usage is 30/30 nights for more than 4 hours, average 7.3 hours per night. Leak is 35 L/minute. Apnea- hypopnea index slightly increased to 8.0 and does include central apnea index 4.3. CURRENT MEDICATIONS: Atenolol 50 mg once a day, hydrochlorothiazide 25 mg once a day, sertraline 100 mg once a day, tramadol 50 mg 3 times a day, oxybutynin 10 mg once a day, simvastatin 10 mg once a day, Reyna D 180 mg once a day. PHYSICAL EXAMINATION: GENERAL: lady without distress. BP 136/77, HR 52, RR 16, height 5 feet 1-1/2 inches, weight 166.8 pounds, body mass index 30.8, temperature 97.2, oxygen saturation at room air 95%. Oropharynx: Extremely low position of soft palate, Mallampati 4. NECK: Supple, no JVD. Thyroid is not palpable. LUNGS: Clear to percussion and to auscultation. Good air exchange. No wheezing or rhonchi. HEART: S1, S2 regular. No murmurs, gallops, or rubs. ABDOMEN: Soft and nontender. Bowel sounds are present. No organomegaly appreciated. EXTREMITIES: No clubbing or cyanosis. PIPE LAYER: Awake, alert, and oriented X3. Cranial nerves 2 to 7 intact. There is no fasciculation or atrophy. noted. No focal deficits observed. IMPRESSION: 1. Obstructive sleep apnea-hypopnea syndrome patient demonstrated 100% compliance with treatment benefitting from treatment. 2. Hypertension. 3. Mild obesity. Patient lost 6 pounds since previous visit. 4. Hyperlipidemia. 5. History of headaches. 6. History of chronic sinusitis. 7. History of bronchitis. 8. History of balance problems. 9. History of chronic sciatic nerve problems bilaterally. 10.Status post right shoulder replacement. 11.Status post total hysterectomy for endometriosis. 12.Status post bilateral surgery for carpal tunnel syndrome. PLAN: 1. I changed the pressure in the machine to the automatic range from 5-15 cm of water. 2. Patient will continue to use PAP equipment every night for the whole night. 3. Sleep hygiene with regular time in bed for at least 7-1/2 to 8 hours. 4. Precautions related to driving. No driving if feeling sleepiness. 5. I will maintain all necessary prescription for PAP supplies including mask, tube, filters. 6. Watching weight. 7. Follow-up visit in 6 months or earlier if patient has any problems. Thank you very much for allowing me to participate in management of your patient. Sincerely, Samuel Mazariegos MD, PhD, FAASM Diplomat of [place] [employer] Sleep Medicine Board of [place] [employer] Sales Representative [employer] [facility] [place] MMTRISTAN / SWATI: [id number] /
== END ==
LOC: SLEEP 15:20
PROVIDERS: ATTEND Internal Medicine
DX: G47.33 Obstructive sleep apnea (adult) (pediatric) (principal); I10 Essential (primary) hypertension; E66.9 Obesity, unspecified; Z86.69 Personal history of other diseases of the nervous system and sense organs; Z87.09 Personal history of other diseases of the respiratory system; Z96.611 Presence of right artificial shoulder joint; Z98.890 Other specified postprocedural states; Z87.39 Personal history of other diseases of the musculoskeletal system and connective tissue; Z90.710 Acquired absence of both cervix and uterus; Z99.89 Dependence on other enabling machines and devices; Z68.30 Body mass index [BMI] 30.0-30.9, adult; Z79.899 Other long term (current) drug therapy; Z88.1 Allergy status to other antibiotic agents

== ENCOUNTER → 2021-08-31 | Outpatient (CLI) | payer MEDICARE ==
--- NOTE | 2021-08-31 15:59 | P.PN ---
Subjective DATE: 08/31/2021 FOLLOW UP VISIT. Patient with obstructive sleep apnea hypopnea syndrome return to sleep center for follow-up visit. Patient is using PAP equipment every night for the whole night, getting PAP supplies in time. The patient does not have significant problems with the mask, PAP unit and humidification. [place] sleepiness scale is 5. I checked PAP unit. PAP unit pressure 5-15, average 12 cm H2O. Usage is 100 % for more then 4 hours, average 6.8 hours per night. Leak is 53 l/m, which is increased. Apnea Hypopnea Index is 5, which is borderline. MEDICATIONS:1. Sertraline 100 mg once a day 2. Hydrochlorothiazide 25 mg once a day 3. Simvastatin 10 mg once a day 4. Reyna 5. Atenolol 50 mg once a day 6. Oxybutynin 10 mg once a day During physical exam: GENERAL: A pleasant patient without any distress. VITAL SIGNS: BP 113/61, HR 55, RR 16 , weight 165, height 5 foot 1 inch, body mass index 30.6, temperature 97.1, oxygen saturation at room air 95% . HEENT: PERRLA, EOMI.low position of soft palate, Mallapati for . NECK: Supple. No JVD. LUNGS: Clear to percussion and to auscultation. Good air exchange. No wheezing or rhonchi. HEART: S1, S2 regular. ABDOMEN: Soft and nontender.[] EXTREMITIES: No clubbing or cyanosis. TOWER EQUIPMENT REPAIRER: Awake, alert, and oriented x3. No focal deficit. Impressions: 1. Obstructive sleep apnea-hypopnea syndrome. Patient demonstrated great compliance with treatment, benefiting from treatment. 2. Hypertension. 3. Hyperlipidemia. 4. Mild obesity. 5. History of chronic sinusitis. 6. History of balance problems. 7. History of chronic sciatic nerve problems bilaterally. 8. Status post right shoulder replacement. 9. Status post total hysterectomy for endometriosis. 10 status post bilateral surgery for carpal tunnel syndrome Plan: 1. Continue using PAP equipment every night for the whole night. 2. To change air filter at least 1-2 times per month. 3. PAP unit should stay lower then position of the head. 4. Advised patient to remove all remaining water from humidifier canister daily and make it dry after each usage. Refill canister with fresh distilled water before each usage. 5. Sleep hygiene with regular time in bed for at least 8 hours. 6. Precautions related to driving. No driving if feel any sleepiness. 7. I will maintain prescription for PAP supplies including mask, tube, filters. 8. Follow up visit in 6 months or earlier if patient has any problems. 9. Watching weight. Thank you very much for allowing me to participate in the management of your patient. Samuel Mazariegos MD, PhD, FAASM. Diplomat of [place] [employer], Sleep Medicine Board by [place] [employer] [facility] Lead [facility] [place]
== END ==
LOC: SLEEP 14:06
PROVIDERS: ATTEND Internal Medicine
DX: G47.33 Obstructive sleep apnea (adult) (pediatric) (principal); I10 Essential (primary) hypertension; E78.5 Hyperlipidemia, unspecified; E66.9 Obesity, unspecified; Z87.09 Personal history of other diseases of the respiratory system; Z87.39 Personal history of other diseases of the musculoskeletal system and connective tissue; Z96.611 Presence of right artificial shoulder joint; Z90.710 Acquired absence of both cervix and uterus; Z98.890 Other specified postprocedural states; Z87.42 Personal history of other diseases of the female genital tract; Z79.899 Other long term (current) drug therapy; Z68.30 Body mass index [BMI] 30.0-30.9, adult; Z99.89 Dependence on other enabling machines and devices

== ENCOUNTER → 2022-03-28 | Outpatient (CLI) | payer MEDICARE ==
--- NOTE | 2022-03-28 10:57 | P.PN ---
Subjective DATE: 03/28/2022 FOLLOW UP VISIT. Patient with obstructive sleep apnea hypopnea syndrome return to sleep center for follow-up visit. Information from previous visit have been reviewed. Patient is using PAP equipment every night for the whole night, getting PAP supplies in time. The patient does not have significant problems with the mask, PAP unit and humidification. [place] sleepiness scale is 3, which is perfect. I checked information from PAP unit. PAP unit pressure 5-15, average 12.2 cm H2O. Usage is 100 % for more then 4 hours, average 7.25 hours per night. Leak is increased 39.5 l/m, patient needs to replace to mask. Apnea Hypopnea Index is 3.3, which is normal. MEDICATIONS:1. Hydrochlorothiazide 25 mg once a day 2. Simvastatin 10 mg once a day 3. Sertraline 100 mg once a day 4. Atenolol 50 mg once a day 5. Oxybutynin 10 mg once a day 6. Reyna During physical exam: GENERAL: A pleasant patient without any distress. VITAL SIGNS: BP 108/60, HR 54, RR 12, weight 166, temperature 98.2, oxygen saturation at room air 97 % . HEENT: PERRLA, EOMI.low position of soft palate, Mallapati 4 . NECK: Supple. No JVD. LUNGS: Clear to percussion and to auscultation. Good air exchange. No wheezing or rhonchi. HEART: S1, S2 regular. ABDOMEN: Soft and nontender. Slightly obese EXTREMITIES: No clubbing or cyanosis. PLANNING DIRECTOR: Awake, alert, and oriented x3. No focal deficit. Impressions: 1. Obstructive sleep apnea-hypopnea syndrome. Patient demonstrated great compliance with treatment, benefiting from treatment. 2. Hyperlipidemia. 3. Hypertension. 4. Mild obesity. 5. History of chronic sinusitis problems. 6. History of balance problems. 7. History of chronic sciatic nerve problems bilaterally. 8. Status post total hysterectomy for endometriosis. 9. Status post right shoulder replacement. 10. Status post bilateral surgical treatment for carpal tunnel syndrome. Plan: 1. Continue using PAP equipment every night for the whole night. 2. To change air filter at least 1-2 times per month. 3. PAP unit should stay lower then position of the head. 4. Advised patient to remove all remaining water from humidifier canister daily and make it dry after each usage. Refill canister with fresh distilled water before each usage. 5. Sleep hygiene with regular time in bed for at least 8 hours. 6. Precautions related to driving. No driving if feel any sleepiness. 7. I will maintain prescription for PAP supplies including mask, tube, filters. To replace mask. 8. .Watching and losing weight. 9. Follow up visit in 6 months or earlier if patient has any problems Thank you very much for allowing me to participate in the management of your patient. Samuel Mazariegos MD, PhD, FAASM. Diplomat of [place] [employer], Sleep Medicine Board by [place] [employer] [facility] [place]
== END ==
LOC: SLEEP 10:23
PROVIDERS: ATTEND Internal Medicine
DX: G47.33 Obstructive sleep apnea (adult) (pediatric) (principal); E78.5 Hyperlipidemia, unspecified; I10 Essential (primary) hypertension; E66.9 Obesity, unspecified; J32.9 Chronic sinusitis, unspecified; R26.9 Unspecified abnormalities of gait and mobility; G56.03 Carpal tunnel syndrome, bilateral upper limbs; Z96.611 Presence of right artificial shoulder joint; Z90.710 Acquired absence of both cervix and uterus; Z87.39 Personal history of other diseases of the musculoskeletal system and connective tissue; Z99.89 Dependence on other enabling machines and devices; Z88.1 Allergy status to other antibiotic agents
CPT/HCPCS: 99212

== ENCOUNTER → 2022-08-31 | Outpatient (CLI) | payer MEDICARE ==
--- NOTE | 2022-09-05 07:18 | BD ---
EXAMINATION TYPE: Axial Bone Density DATE OF EXAM: 08/31/2022 CLINICAL HISTORY: 77 years old Female. ICD-10 CODE: M81.0 KNOWN OSTEOPOROSIS Height: 61 Weight: 167 FRAX RISK QUESTIONS: Family History (Parent hip fracture): no History of Fracture in Adulthood: no Secondary Osteoporosis: yes 3. Menopause before 45: total hyst at 42 RISK FACTORS HISTORY OF: Family History of Osteoporosis: yes ,mother Active: yes Diet low in dairy products/other sources of calcium: yes Postmenopausal woman: yes Lost more than 2 inches in height since high school: no MEDICATIONS: Additional Medications: no hbp meds, cholesterol, ocd meds, bladder meds EXAM MEASUREMENTS: Bone mineral densitometry was performed using the [employer] System. Bone mineral density as measured about the Lumbar spine is: ----- L1-L4(G/cm2): 1.151 T Score Values are as follows: ----- L1: -1.8 ----- L2: 0.9 ----- L3: 0.0 ----- L4: -0.3 ----- L1-L4: -0.2 Z Score Values are as follows: ----- L1: -0.4 ----- L2: 2.3 ----- L3: 1.4 ----- L4: 1.1 ----- L1-L4: 1.1 Bone mineral density has: Increased 5.0% since study of: 04/27/2014 Bone mineral density about the R hip (g/cm2): 0.783 Bone mineral density about the L hip (g/cm2): 0.848 T Score values are as follows: -----R Neck: -2.2 -----L Neck: -1.6 -----R Total: -1.8 -----L Total: -1.3 Z Score values are as follows: -----R Neck: -0.5 -----L Neck: 0.1 -----R Total: -0.3 -----L Total: 0.2 Bone mineral density has: Decreased -12.8% since study of: 04/27/2014 FRAX%s: The graph provided illustrates a 13.9% chance for a major osteoporotic fx and a 3.8% chance f or the hips probability for fx in 10 years time. IMPRESSION: Osteopenia (T Score between -2.5 and -1). There is slightly increased risk of fracture and the patient may be considered for treatment. Re-Screen 2-5 years. NOTE: T-SCORE=SD OF THE YOUNG ADULT MEAN.
== END | disposition home or self-care (01) ==
LOC: RADBDWWP 14:03
PROVIDERS: ATTEND Family Medicine
DX: M81.0 Age-related osteoporosis without current pathological fracture (principal); M85.89 Other specified disorders of bone density and structure, multiple sites
CPT/HCPCS: 77080

== ENCOUNTER → 2022-09-06 | Outpatient (CLI) | payer MEDICARE ==
--- NOTE | 2022-09-06 12:21 | P.PN ---
Subjective DATE: [] FOLLOW UP VISIT. Patient with obstructive sleep apnea hypopnea syndrome return to sleep center for follow-up visit. Information from previous visit have been reviewed. Patient is using PAP equipment every night for the whole night, getting PAP supplies in time. The patient does not have significant problems with the mask, PAP unit and humidification. [place] sleepiness scale is 4, which is normal. I checked information from PAP unit. PAP unit pressure 5-15, average 11.8 cm H2O. Usage is 100 % for more then 4 hours, average 7.1 hours per night. Leak increased to 37 l/m. Apnea Hypopnea Index is 4.0, which is normal. MEDICATIONS:1. Atenolol 50 mg once a day 2. Hydrochlorothiazide 25 mg once a day 3. Sertraline 100 mg once a day 4. , Tramadol 50 mg up to 3 times a day 5. Oxybutynin 10 mg once a day 6. Simvastatin 10 mg once a day During physical exam: GENERAL: A pleasant patient without any distress. VITAL SIGNS: BP 125/51, HR 85, RR 16 , weight 168.8, temperature 98.2, oxygen saturation at room air 95 % . HEENT: PERRLA, EOMI.low position of soft palate, Mallapati 4 . NECK: Supple. No JVD. LUNGS: Clear to percussion and to auscultation. Good air exchange. No wheezing or rhonchi. HEART: S1, S2 regular. ABDOMEN: Soft and nontender.[] EXTREMITIES: No clubbing or cyanosis. [employer] UTILITY WORKER: Awake, alert, and oriented x3. No focal deficit. Impressions: 1. Obstructive sleep apnea-hypopnea syndrome. Patient demonstrated great compliance with treatment, benefiting from treatment. 2. Hypertension. 3. Hyperlipidemia. 4. Mild obesity. 5. History of balance problems. 6. History of sciatic nerve problems bilaterally. 7. Status post right shoulder replacement. 8. Status post total hysterectomy for endometriosis. Plan: 1. Continue using PAP equipment every night for the whole night. 2. To change air filter at least 1-2 times per month. 3. PAP unit should stay lower then position of the head. 4. Advised patient to remove all remaining water from humidifier canister daily and make it dry after each usage. Refill canister with fresh distilled water before each usage. 5. Sleep hygiene with regular time in bed for at least 8 hours. 6. Precautions related to driving. No driving if feel any sleepiness. 7. I will maintain prescription for PAP supplies including mask, tube, filters. 8. Watching weight. 9. Follow up visit in 6 months or earlier if patient has any problems. Thank you very much for allowing me to participate in the management of your patient. Samuel Mazariegos MD, PhD, FAASM. Diplomat of [place] [employer], Sleep Medicine Board by [place] [employer] Knotting Machine Operator of [facility] [place]
== END ==
LOC: 3 N SLEEP 11:25
PROVIDERS: ATTEND Internal Medicine
DX: G47.33 Obstructive sleep apnea (adult) (pediatric) (principal); I10 Essential (primary) hypertension; E78.5 Hyperlipidemia, unspecified; G57.00 Lesion of sciatic nerve, unspecified lower limb; R26.89 Other abnormalities of gait and mobility; E66.9 Obesity, unspecified; Z79.899 Other long term (current) drug therapy; Z90.710 Acquired absence of both cervix and uterus; Z96.611 Presence of right artificial shoulder joint; Z99.89 Dependence on other enabling machines and devices; Z88.1 Allergy status to other antibiotic agents; R26.81 Unsteadiness on feet
CPT/HCPCS: 99212

== ENCOUNTER → 2023-03-07 | Outpatient (CLI) | payer MEDICARE ==
--- NOTE | 2023-03-07 11:39 | P.PN ---
Subjective DATE: 03/07/2023 FOLLOW UP VISIT. Patient with obstructive sleep apnea hypopnea syndrome return to sleep center for follow-up visit. Information from previous visit have been reviewed. Patient is using PAP equipment every night for the whole night, getting PAP supplies in time. The patient does not have significant problems with the mask, PAP unit and humidification. [place] sleepiness scale is 2. I checked information from PAP unit. PAP unit pressure 5-15, average 12.1 cm H2O. Usage is 100 % for more then 4 hours, average 7.3 hours per night. Leak is 17 l/m, which is in acceptable range. Apnea Hypopnea Index is 4.5, which is normal. MEDICATIONS:1. Hydrochlorothiazide 25 mg once a day 2. Atenolol 50 mg once a day 3. Oxybutynin 10 mg once a day 4. Sertraline 100 mg once a day 5. Simvastatin 10 mg once a day 6. Tramadol During physical exam: GENERAL: A pleasant patient without any distress. VITAL SIGNS: BP 104/66, HR 50, RR 16 , weight 178.6, temperature 98.3, oxygen saturation at room air 97 % . HEENT: PERRLA, EOMI.low position of soft palate, Mallapati 4 . NECK: Supple. No JVD. LUNGS: Clear to percussion and to auscultation. Good air exchange. No wheezing or rhonchi. HEART: S1, S2 regular. ABDOMEN: Soft and nontender.[] EXTREMITIES: No clubbing or cyanosis. PHYSICAL FITNESS TRAINER: Awake, alert, and oriented x3. No focal deficit. Impressions: 1. Obstructive sleep apnea-hypopnea syndrome. Patient demonstrated great compliance with treatment, benefiting from treatment. 2. Hypertension. 3. Hyperlipidemia. 4. Mild obesity, patient increased weight on 10 pounds comparing with previous visit. 5. History of balance problems. 6. History of sciatic nerve problems bilaterally. 7. Status post total hysterectomy for endometriosis. 8. Status post right shoulder replacement. Plan: 1. Continue using PAP equipment every night for the whole night. 2. To change air filter at least 1-2 times per month. 3. PAP unit should stay lower then position of the head. 4. Advised patient to remove all remaining water from humidifier canister daily and make it dry after each usage. Refill canister with fresh distilled water before each usage. 5. Sleep hygiene with regular time in bed for at least 8 hours. 6. Precautions related to driving. No driving if feel any sleepiness. 7. I will maintain prescription for PAP supplies including mask, tube, filters. 8. Follow up visit in 6 months or earlier if patient has any problems. 9. Watching and losing weight. Thank you very much for allowing me to participate in the management of your patient. Samuel Mazariegos MD, PhD, FAASM. Diplomat of [place] [employer], Sleep Medicine Board by [place] [employer] Wheel Mill Operator of [facility] [place]
== END ==
LOC: 3 N SLEEP 10:39
PROVIDERS: ATTEND Internal Medicine
DX: G47.33 Obstructive sleep apnea (adult) (pediatric) (principal); I10 Essential (primary) hypertension; E78.5 Hyperlipidemia, unspecified; E66.9 Obesity, unspecified; R26.89 Other abnormalities of gait and mobility; F12.90 Cannabis use, unspecified, uncomplicated; Z90.710 Acquired absence of both cervix and uterus; Z96.611 Presence of right artificial shoulder joint; Z99.89 Dependence on other enabling machines and devices; Z88.5 Allergy status to narcotic agent; Z81.1 Family history of alcohol abuse and dependence; Z79.82 Long term (current) use of aspirin
CPT/HCPCS: 99212

== ENCOUNTER → 2023-10-02 | Outpatient (CLI) | payer MEDICARE ==
[2023-10-02 11:20] LABS: Partial Thromboplastin Time 22.9 sec (22.0-30.0)
[2023-10-02 15:12] LABS: HCT 43.7 % (37.2-46.3); HGB 13.8 g/dL (12.0-15.0); MCH 29.7 pg (27.0-32.0); MCHC 31.6 g/dL (32.0-37.0); Mean Platelet Volume 10.5 FL (9.5-12.2); NRBC Per 100 WBC 0 X 10*3/uL (0.00-0.01); Platelet Count 216 X 10*3/uL (140-440); RBC 4.65 X 10*6/uL (4.10-5.20); RDW 13.5 % (11.5-14.5); WBC 6.72 X 10*3/uL (4.50-10.00)
[2023-10-02 18:01] LABS: INR 0.9 (<1.2); Prothrombin Time 10.5 sec (10.0-12.5)
== END | disposition home or self-care (01) ==
LOC: LABPAT 10:02
PROVIDERS: ATTEND Orthopaedic Surgery
DX: Z01.812 Encounter for preprocedural laboratory examination (principal); M17.11 Unilateral primary osteoarthritis, right knee; M21.061 Valgus deformity, not elsewhere classified, right knee
CPT/HCPCS: 85027; 85610; 85730; 93005

== ENCOUNTER → 2024-01-09 | Outpatient (CLI) | payer MEDICARE ==
[2024-01-09 15:00] VITALS: BP 123/63; PULSE 56; RESP 16; TEMP 98.1
--- NOTE | 2024-01-09 15:10 | P.PROGSL ---
Subjective DATE: 01/09/2024 FOLLOW UP VISIT. Patient with obstructive sleep apnea hypopnea syndrome return to sleep center for follow-up visit. Information from previous visit have been reviewed. Patient is using PAP equipment every night for the whole night, getting PAP supplies in time. The patient does not have significant problems with the mask, PAP unit and humidification. [place] sleepiness scale is 1, which is perfect. I checked information from PAP unit. PAP unit pressure 5-15, average 11.9 cm H2O. Usage is 100% for more then 4 hours, average 8.3 hours per night. Leak is 14 l/m, which is in acceptable range. Apnea Hypopnea Index is 6.1, which is borderline. MEDICATIONS have been reviewed, please see below. During physical exam: GENERAL: A pleasant patient without any distress. VITAL SIGNS: Please see below, weight is 188 lbs. HEENT: PERRLA, EOMI.low position of soft palate, Mallapati 4 . NECK: Supple. No JVD. LUNGS: Clear to percussion and to auscultation. Good air exchange. No wheezing or rhonchi. HEART: S1, S2 regular. ABDOMEN: Soft and nontender. Slightly obese EXTREMITIES: No clubbing or cyanosis. SELECT BANKER: Awake, alert, and oriented x3. No focal deficit. Impressions: 1. Obstructive sleep apnea-hypopnea syndrome. Patient demonstrated great compliance with treatment, benefiting from treatment. 2. Hypertension. 3. Hyperlipidemia. 4. Mild obesity, patient increased weight on 10 pounds comparing with previous visit, BMI 34.9. 5. History of balance problems. 6. History of sciatic nerve problems bilaterally. 7. Status post total hysterectomy for endometriosis. 8. Status post right shoulder replacement. Plan: 1. Continue using PAP equipment every night for the whole night. 2. Sleep hygiene with regular time in bed for at least 7.5-8 hours 3. PAP unit should stay lower then position of the head. 4. Advised patient to remove all remaining water from humidifier canister daily and make it dry after each usage. Refill canister with fresh distilled water before each usage. 5. Watching and losing weight. 6. Precautions related to driving. No driving if feel any sleepiness. 7. I will maintain prescription for PAP supplies including mask, tube, filters. 8. Follow up visit in 8 months or earlier if patient has any problems. Thank you very much for allowing me to participate in the management of your patient. Samuel Mazariegos MD, PhD, FAASM. Diplomat of [place] [employer] Sleep Medicine, Sleep Medicine Board by [place] [employer] Medicine Clinic Manager of [facility] [place] Objective - Vital Signs Vital Signs: Vital Signs Temp 98.1 F 01/09/24 14:59 Pulse 56 L 01/09/24 14:59 Resp 16 01/09/24 14:59 BP 123/63 01/09/24 14:59 Pulse Ox 94 L 01/09/24 14:59 FiO2 Intake & Output 01/08/24 01/09/24 01/09/24 18:59 06:59 18:59 Weight 85.275 kg Home Medications: Home Medications Medication Instructions Recorded Confirmed Type Etodolac Tab 400 mg PO BID-W/MEALS 01/13/20 01/22/20 History Fexofenadine HCl [Reyna Allergy] 180 mg PO DAILY 01/13/20 01/13/20 History Oxybutynin ER [Ditropan XL] 10 mg PO QAM 01/13/20 01/09/24 History Sertraline [Zoloft] 100 mg PO DAILY 01/13/20 01/09/24 History Simvastatin [Zocor] 10 mg PO W/SUPPER 01/13/20 01/09/24 History atenoloL [Tenormin] 50 mg PO DAILY 01/13/20 01/09/24 History traMADol HCL [Ultram] 50 mg PO TID 01/13/20 01/09/24 History Aspirin [Adult Low Dose Aspirin EC] 81 mg PO BID #60 tablet. 01/22/20 Rx HYDROcodone/APAP 5-325MG [[place] 1 - 2 tab PO Q6HR PRN #42 tab 01/22/20 Rx 5-325] Sennosides-Docusate Sodium 1 tab PO BID #60 tablet 01/22/20 Rx [Senokot-S] hydroCHLOROthiazide [Hydrodiuril] 25 mg PO DAILY 01/09/24 01/09/24 History
== END ==
LOC: 3 N SLEEP 14:29
PROVIDERS: ATTEND Internal Medicine
DX: G47.33 Obstructive sleep apnea (adult) (pediatric) (principal); I10 Essential (primary) hypertension; E78.5 Hyperlipidemia, unspecified; E66.9 Obesity, unspecified; Z87.39 Personal history of other diseases of the musculoskeletal system and connective tissue; Z90.710 Acquired absence of both cervix and uterus; Z96.651 Presence of right artificial knee joint; Z99.89 Dependence on other enabling machines and devices; Z68.34 Body mass index [BMI] 34.0-34.9, adult; Z88.1 Allergy status to other antibiotic agents; Z79.899 Other long term (current) drug therapy
CPT/HCPCS: 99212

== ENCOUNTER → 2024-10-02 | Outpatient (CLI) | payer MEDICARE ==
--- NOTE | 2024-10-02 13:46 | P.PROGSL ---
Subjective DATE: 10/02/2024 FOLLOW UP VISIT. Patient with obstructive sleep apnea hypopnea syndrome return to sleep center for follow-up visit. Information from previous visit have been reviewed. Patient is using PAP equipment every night for the whole night, getting PAP supplies in time. The patient does not have significant problems with the mask, PAP unit and humidification. [place] sleepiness scale is 4, which is normal. I checked information from PAP unit. PAP unit pressure 5-15, average 12.6 cm H2O. Usage is 100% for more then 4 hours, average 6.7 hours per night. Leak is 6 l/m, which is in acceptable range. Apnea Hypopnea Index is 2.5, which is normal. MEDICATIONS: Hydrochlorothiazide 25 mg once a day, atenolol 50 mg once a day, sertraline 100 mg once a day, tramadol, oxybutynin 10 mg once a day, simvastatin 10 mg once a day, latanoprost eyedrops. During physical exam: GENERAL: A pleasant patient without any distress. VITAL SIGNS: BP 163/73, HR 47, RR 16, weight 186 pounds, temperature 97.9, oxygen saturation room air 97%, BMI 33.6. HEENT: PERRLA, EOMI.low position of soft palate, Mallapati 4 . NECK: Supple. No JVD. LUNGS: Clear to percussion and to auscultation. Good air exchange. No wheezing or rhonchi. HEART: S1, S2 regular. ABDOMEN: Soft and nontender.[] EXTREMITIES: No clubbing or cyanosis. RADIOLOGY ASSISTANT: Awake, alert, and oriented x3. No focal deficit. Impressions: 1. Obstructive sleep apnea-hypopnea syndrome. Patient demonstrated great compliance with treatment, benefiting from treatment. 2. Hypertension. 3. Hypothyroidism. 4. Mild obesity. 5. History of balance problems. 6. History of sciatic nerve problems. 7. Hyperlipidemia. 8. Status post hysterectomy for endometriosis. 9. Status post right shoulder replacement. Plan: 1. Continue using PAP equipment every night for the whole night. 2. Sleep hygiene with regular time in bed for at least 7.5-8 hours 3. PAP unit should stay lower then position of the head. 4. Advised patient to remove all remaining water from humidifier canister daily and make it dry after each usage. Refill canister with fresh distilled water before each usage. 5. Watching weight. 6. Precautions related to driving. No driving if feel any sleepiness. 7. I will maintain prescription for PAP supplies including mask, tube, filters. 8. Follow up visit in 12 months or earlier if patient has any problems. Thank you very much for allowing me to participate in the management of your patient. Samuel Mazariegos MD, PhD, FAASM. Diplomat of [place] Board of Sleep Medicine, Sleep Medicine Board by [place] Board of Internal Medicine President Ce[employer] & Founder of [facility] [place] Objective Home Medications: Home Medications Medication Instructions Recorded Confirmed Type Etodolac Tab 400 mg PO BID-W/MEALS 01/13/20 01/22/20 History Fexofenadine HCl [Reyna Allergy] 180 mg PO DAILY 01/13/20 01/13/20 History Oxybutynin ER [Ditropan XL] 10 mg PO QAM 01/13/20 01/09/24 History Sertraline [Zoloft] 100 mg PO DAILY 01/13/20 01/09/24 History Simvastatin [Zocor] 10 mg PO W/SUPPER 01/13/20 01/09/24 History atenoloL [Tenormin] 50 mg PO DAILY 01/13/20 01/09/24 History traMADol HCL [Ultram] 50 mg PO TID 01/13/20 01/09/24 History Aspirin [Adult Low Dose Aspirin EC] 81 mg PO BID #60 tablet. 01/22/20 Rx HYDROcodone/APAP 5-325MG [[place] 1 - 2 tab PO Q6HR PRN #42 tab 01/22/20 Rx 5-325] Sennosides-Docusate Sodium 1 tab PO BID #60 tablet 01/22/20 Rx [Senokot-S] hydroCHLOROthiazide [Hydrodiuril] 25 mg PO DAILY 01/09/24 01/09/24 History
== END ==
LOC: 3 N SLEEP 13:10
PROVIDERS: ATTEND Internal Medicine
CPT/HCPCS: 99212